=== PATIENT | female | born 1935 | race Caucasian/White ===

== ENCOUNTER 2017-05-06 06:11 | Day surgery (SDC) | payer MEDICARE ==
[~2017-05-06] VITALS: Ht 154.9 cm; Wt 80.5 kg
[~2017-05-06 06:11] MED LIST: 1-ME1LIQ PO; ATOR40TA49 PO; CITRTAB7 PO; CLOP75 PO; ECOT81TA2 PO; FISH100020 PO; FLAX100013; LOSA50TA PO; MAGN400T19 PO; METO25 PO; PREV30CA36 PO; VITA100020; VITA400C59 CHEW
[2017-05-06] MEDS ORDERED: IOHEXOL 350 MG/ML 100 ML BTL (for Cath Lab) OTHER ONE (06:12)
[2017-05-06 06:53] VITALS: BP 156/74; PULSE 53; RESP 18; TEMP 97.8; O2SAT 97
[2017-05-06] MEDS ORDERED: SODIUM CHLOR 0.9% 1000 ML INJ 1,000 ML IV SCH (07:00)
[2017-05-06] MEDS ORDERED: SODIUM CHLORIDE 0.9% FLUSH 10 ML FLUSH IV FLUSH PRN ×2 (07:00)
[2017-05-06] MEDS ORDERED: HYDROCORTISONE SOD SUCCINATE 100 MG VIAL IV PUSH SCH (07:00)
[2017-05-06] MEDS ORDERED: LANS30CA PO (07:14)
[2017-05-06] MEDS ORDERED: VITATAB43 PO (07:14)
[2017-05-06] MEDS ORDERED: VITATAB56 PO (07:14)
[2017-05-06] MEDS ORDERED: ATOR40TA16 PO (07:14)
[2017-05-06] MEDS ORDERED: CITRTAB8 PO (07:14)
[2017-05-06] MEDS ORDERED: METHLMAZOLE PO (07:14)
[2017-05-06] MEDS ORDERED: LOSA50TA PO (07:14)
[2017-05-06] MEDS ORDERED: METO25TA3 PO (07:14)
[2017-05-06] MEDS ORDERED: AMLO10TA2 PO (07:14)
[2017-05-06] MEDS ORDERED: FLAX10002 PO (07:14)
[2017-05-06] MEDS ORDERED: ECASA81 PO (07:14)
[2017-05-06] MEDS ORDERED: CLOP75TA PO (07:14)
[2017-05-06] MEDS ORDERED: PRED20 PO (07:14)
[2017-05-06] MEDS ORDERED: MAGN500T5 PO (07:14)
[2017-05-06] MEDS ORDERED: OMEGCAP PO (07:14)
[2017-05-06] MEDS ORDERED: HEPARIN-NS/PF INJ 1,000 ML ONE (08:49)
[2017-05-06] MEDS ORDERED: MIDAZOLAM HCL 5 MG/5 ML VIAL ONE (08:50)
[2017-05-06] MEDS ORDERED: HEPARIN SODIUM - IV 10,000 UNITS/10 ML VIAL ONE (08:50)
[2017-05-06] MEDS ORDERED: NITROGLYCERIN INJ 5 ML ONE (08:50)
[2017-05-06] MEDS ORDERED: METOCLOPRAMIDE HCL 10 MG/2 ML VIAL IV PUSH PRN (10:30)
[2017-05-06] MEDS ORDERED: ONDANSETRON HCL 4 MG/2 ML VIAL IV PUSH PRN (10:30)
[2017-05-06] MEDS ORDERED: ACETAMINOPHEN 325 MG TAB PO PRN (10:30)
[2017-05-06] MEDS ORDERED: LORazepam 2 MG/ML VIAL IV PUSH PRN (10:30)
[2017-05-06] MEDS ORDERED: ATROPINE SULFATE 1 MG/ML VIAL IV PUSH PRN (10:30)
[2017-05-06] MEDS ORDERED: BACITRACIN OINT 0.9 GM PKT TOP ONE (10:30)
[2017-05-06] MEDS ORDERED: LIDOCAINE HCL 1% 50 ML VIAL INFIL PRN (10:30)
[2017-05-06] MEDS ORDERED: MISC INFORMATION XX ONE (10:30)
[2017-05-06] MEDS ORDERED: SODIUM CHLOR 0.9% 250 ML INJ 250 ML IV PRN (10:30)
--- NOTE | 2017-05-06 11:05 | MA ---
cc: VITALIY ROBERSON DATE: 05/06/2017 PROCEDURE PERFORMED 1. Fluoroscopy with interpretation. 2. Descending aortography. 3. Bilateral lower extremity peripheral angiography with first, second, third order visualization and interpretation. 4. Orbital rotational atherectomy with balloon angioplasty and endovascular stenting with a self-expanding stent of the right external iliac artery. METHOD The risks, benefits and alternatives were discussed with the patient. The patient understood and consented to the procedure. The patient was brought into the catheterization lab and was placed on the catheterization table. Bilateral common femoral arteries were prepped. The left common femoral was accessed and a 5 Scottish, 11 cm sheath was placed without difficulty. DESCENDING AORTOGRAPHY Descending aortography was performed in anterior-posterior view using a 24 cc contrast injection with good opacification. Descending aortography revealed mild infrarenal descending aortic atherosclerosis. PERIPHERAL ANGIOGRAPHY 1. The left common iliac artery has heavy calcium present at the ostium and is covered by a stent which extends into the aorta. There is eccentric 30% stenosis but no translesional gradient. The remainder of the iliac stent is widely patent. The left external and internal iliac arteries have minor luminal irregularities. The left common femoral artery has 60% calcific stenosis. There is a stent present in the proximal left superficial femoral which is occluded. The distal superficial femoral is collateralized via profunda. The left popliteal, anterior tibial, posterior tibial and peroneal arteries have minor luminal irregularities. 2. The right common iliac artery has a stent present which extends into the aorta, appears to be widely patent. There is eccentric calcium at the distal stent and although it is eccentric it is patent without stenosis. The right external iliac artery has a 90% heavily calcified focal stenosis. The internal and external iliac arteries have mild to moderate diffuse disease. The right common femoral artery has 50% calcific stenosis. The right superficial femoral, popliteal, anterior tibial, posterior tibial and peroneal vessels are patent but have mild to moderate diffuse disease. PERIPHERAL INTERVENTION Access was obtained with a 6 Scottish sheath from a retrograde right common femoral approach towards the aorta. A Glidewire was navigated to the descending aorta. A Trailblazer catheter was advanced to the descending aorta and exchanged for a 0.014 inch, 335 cm Viper wire. A 2.0 mm CSI atherectomy catheter was then prepped. Orbital rotational atherectomy was performed on six sequential passes through the right external iliac artery at 60,000, 90,000 and 120,000 revolutions per minute to each. A 6.0 x 40 mm Medtronic balloon was then deployed on two sequential inflations to the right external iliac artery. Repeat angiography still showed severe residual stenosis. An 8.0 x 40 mm Medtronic self-expanding stent was then deployed. Repeat angiography showed mild residual eccentric stenosis but ROSLYN-III flow. There was no damping waveform at the level of the right common femoral artery. CONCLUSIONS 1. Patent bilateral common iliac artery stents. 2. Severe right external iliac artery stenosis. 3. Successful orbital rotational atherectomy with balloon angioplasty and endovascular stenting with self-expanding stent of the right external iliac artery. 4. Occluded left superficial femoral artery. PLAN Will monitor the patient closely for any post-procedural complications. Hopefully this will translate well with symptomatic improvement. I will talk to her potentially about revascularization of the left lower extremity. Options would include left common femoral endarterectomy followed by a fem-pop bypass. Alternatively, we could attempt a retropopliteal approach and possible endovascular atherectomy of the common femoral artery. Will have a discussion with her and make a decision. MD MARION Avery/LILY /10:33 AM /10:41 AM
--- NOTE | 2017-05-06 18:00 | EKG ---
Date Performed: 05/06/2017 Time Performed: 07:06:26 PTAGE: 81 years EKG: Sinus bradycardia with PAC(s). Poor R wave progression - probable normal variant Septal T w ave changes are nonspecific Since previous tracing, no significant change noted Borderline ECG PREVIOUS TRACING : 02/28/2015 07.13 DOCTOR: Shane Jernigan Interpretating Date/Time 05/06/2017 17:59:22
[2017-05-07] MEDS ORDERED: METH5TAB4 PO (11:10)
== END 2017-05-06 18:55 | disposition home or self-care (01) ==
LOC: HDOC 06:11 → HDIC 06:12 → HDOC 18:55
PROVIDERS: ATTEND Internal Medicine
DX: I73.9 Peripheral vascular disease, unspecified (principal); I70.0 Atherosclerosis of aorta; I13.0 Hypertensive heart and chronic kidney disease with heart failure and stage 1 through stage 4 chronic kidney disease, or unspecified chronic kidney disease; N18.3 Chronic kidney disease, stage 3 (moderate); I50.30 Unspecified diastolic (congestive) heart failure; E11.22 Type 2 diabetes mellitus with diabetic chronic kidney disease; E53.8 Deficiency of other specified B group vitamins; G63 Polyneuropathy in diseases classified elsewhere; E05.20 Thyrotoxicosis with toxic multinodular goiter without thyrotoxic crisis or storm; I27.20 Pulmonary hypertension, unspecified; I83.90 Asymptomatic varicose veins of unspecified lower extremity; M85.80 Other specified disorders of bone density and structure, unspecified site; E05.90 Thyrotoxicosis, unspecified without thyrotoxic crisis or storm; R01.1 Cardiac murmur, unspecified; J21.9 Acute bronchiolitis, unspecified; E11.21 Type 2 diabetes mellitus with diabetic nephropathy; E11.51 Type 2 diabetes mellitus with diabetic peripheral angiopathy without gangrene; E78.5 Hyperlipidemia, unspecified; G89.29 Other chronic pain; K21.9 Gastro-esophageal reflux disease without esophagitis
CPT/HCPCS: 37227; 75625; 75716; 85002; 86850; 86900; 86901; 93005; 99152; 99153; C1714; C1725; C1751; C1769; C1876; C1893; J1644; J1720; J2250; J3010; 85347; Q9967

== ENCOUNTER 2017-09-16 05:57 | Day surgery (SDC) | payer MEDICARE ==
[~2017-09-16] VITALS: Ht 154.9 cm; Wt 80.0 kg
[~2017-09-16 05:57] MED LIST changes: -1-ME1LIQ PO; +AMLO10TA2 PO; +ATOR40TA16 PO; -ATOR40TA49 PO; -CITRTAB7 PO; +CITRTAB8 PO; -CLOP75 PO; +CLOP75TA PO; +ECASA81 PO; -ECOT81TA2 PO; -FISH100020 PO; -FLAX100013; +FLAX10002 PO; +LANS30CA PO; -MAGN400T19 PO; +MAGN500T5 PO; +METH5TAB4 PO; -METO25 PO; +METO25TA3 PO; +OMEGCAP PO; +PRED20 PO; -PREV30CA36 PO; -VITA100020; -VITA400C59 CHEW; +VITATAB43 PO; +VITATAB56 PO
[2017-09-16] MEDS ORDERED: IOHEXOL 350 MG/ML 100 ML BTL (for Cath Lab) OTHER ONE (05:58)
[2017-09-16 06:37] VITALS: BP 140/76; PULSE 52; RESP 18; TEMP 98; O2SAT 95
[2017-09-16] MEDS ORDERED: HEPARIN-NS/PF FLUSH BAG 2,000 ML IV FLUSH ONE (08:20)
[2017-09-16] MEDS ORDERED: LIDOCAINE HCL 1% PF 30 ML VIAL ONE (08:21)
[2017-09-16] MEDS ORDERED: HEPARIN SODIUM - IV 10,000 UNITS/10 ML VIAL ONE (08:21)
[2017-09-16] MEDS ORDERED: MIDAZOLAM HCL 2 MG/2 ML VIAL ONE ×2 (08:21→09:11)
[2017-09-16] MEDS ORDERED: NITROGLYCERIN INJ 5 ML ONE (08:21)
[2017-09-16] MEDS ORDERED: LIDOCAINE HCL 1% 50 ML VIAL INFIL PRN (10:30)
[2017-09-16] MEDS ORDERED: MISC INFORMATION XX ONE (10:30)
[2017-09-16] MEDS ORDERED: ATROPINE SULFATE 1 MG/ML VIAL IV PUSH PRN (10:30)
[2017-09-16] MEDS ORDERED: LORazepam 2 MG/ML VIAL IV PUSH PRN (10:30)
[2017-09-16] MEDS ORDERED: BACITRACIN OINT 0.9 GM PKT TOP ONE (10:30)
[2017-09-16] MEDS ORDERED: METOCLOPRAMIDE HCL 10 MG/2 ML VIAL IV PUSH PRN (10:30)
[2017-09-16] MEDS ORDERED: SODIUM CHLOR 0.9% 250 ML INJ 250 ML IV PRN (10:30)
[2017-09-16] MEDS ORDERED: ONDANSETRON HCL 4 MG/2 ML VIAL IV PUSH PRN (10:30)
--- NOTE | 2017-09-16 10:36 | CATHPROC ---
[place] HIS Report Study Information Study Number Admission Scheduled Start Study Start [id number] Sep 16 2017 5:57AM 09/16/2017 Sep 16 2017 8:11AM [place] Service Cath Endovascular Study Admit Source Facility Department Other [facility] - Complaint Evaluation Supervisor Physician and Clinical Staff Initial Emmanuel Calderon Coffee Sommelier Zayra Pena,RN Coffee SommelierDean Hung,BROOK Recorder Emile Guillen,RT(R) Scrub Oziel Real,RT(R) Procedures Performed Procedure Location (Site) Vessel Name Angiogram (manual) Fem L. Com (L7) Femoral Art Angiogram (manual) Popliteal L (L10) Popliteal Angiogram (manual) SFA (left) Femoral Art Angiogram (manual) Tib, Post (Left) Popliteal MAINTENANCE ASSISTANT Fem L. Com (L7) Femoral Art MAINTENANCE ASSISTANT SFA (left) Femoral Art Wire insertion Popliteal L (L10) Popliteal Equipment Time Two Way Radio Technician Description Size Mfg Part Number Used/Scraped DBP- CARDIOVASCULAR CATHETER, STEALTH SOLID 09:56 [id number] Used SYSTEMS INC. 2.0MM *[id number] CARDIOVASCULAR VPR-[id number] 09:53 WIRE, FIRM (VIPER) 335 Used SYSTEMS INC. *[id number] INTRODUCER SET, 08:42 COOK INC. FR 5 [id number] *[id number] Used MICROPUNCTURE STIFF BALLOON, ADVANCE 35 LP .035 5 [id number] 09:43 COOK/BARTOLO 5 X 20 Used X 20 *[id number] *[id number] BALLOON, ADMIRAL EXTREME 5 [id number] 09:53 [employer] 130CM Used X 60 130CM *[id number] BALLOON, ADMIRAL IN.PACT 6 X [id number] 10:15 [employer] 130CM Used 150 130CM *[id number] BALLOON, ADMIRAL IN.PACT 7 X [id number] 10:04 [employer] 130CM Used 40 130CM *[id number] CATHETER, FR5 TRAILBLAZER [id number] 09:31 [employer] 135CM Used .035 *[id number] 08:34 MALLINCKRODT SYRINGE, ANGIOMAT 150ML 150ML [id number] Used [id number] 08:34 MEDLINE INDUSTRIES PACK, CCL CUSTOM * Used *[id number] 08:34 MEDLINE PACER PEN, SKIN DUAL W/ RULER * Used *[id number] 08:34 [employer] MEDICAL WIRE, EXCHANGE 260CM 3MMJ 260CM Used *[id number] 08:34 NAMIC MANIFOLD, 4 PORT * Used *[id number] 08:34 NYCOMED OMNIPAQUE, 300 MG, 150ML 150ML [id number] Used [id number] 08:34 MURPHY MEDICAL BLANKET,WARM AIR CCL * Used *[id number] 08:34 TERUMO MEDICAL SHEATH, FR5 TERUMO (10CM) FR 5 Used *[id number] 08:46 TERUMO MEDICAL SHEATH, FR6 TERUMO (10CM) FR 6 Used *[id number] WIRE, ANGLE GLIDE STIFF .035 [id number] 08:34 TERUMO MEDICAL/BARTOLO 260CM Used 260CM *[id number] Equipment Model, Serial, Lot Number and Expiration Data Description Model Number Serial Number Lot Number Expiration Date BALLOON, ADMIRAL IN.PACT 6 X [id number] 05-06-2020 150 130CM BALLOON, ADMIRAL IN.PACT 7 X [id number] 03-15-2018 40 130CM CATHETER, STEALTH SOLID 2.0MM [id number] 05-25-2019 INTRODUCER SET, [id number] 06-25-2020 MICROPUNCTURE STIFF WIRE, FIRM (VIPER) 335 [id number] 04-24-2019 History: Current Medications Medication Dosage/Unit Route Frequency Last Date/Time Taken LOPRESSOR ASA PLAVIX Statins (any) History: Allergies Allergy Reaction Sulfa (Sulfonamide Antibiotics) lisinopril iohexol potassium iodide sodium iodide codeine diatrizoate meglumine ibuprofen iodine povidone-iodine gadoteridol gadodiamide iodixanol gadobenic acid History: Risk Factors Family History of Hypertension Dyslipidemia Previous MS Previous Heart Failure Premature CAD Yes Yes No No No Prior Valve Prior PCI Prior CABG Surgery No No No Cerebrovascular Peripheral Artery Chronic Lung On Dialysis Diabetes Diabetes Therapy Disease Disease Disease No No Yes No Yes Diet History: Stress Tests Stress or Imaging Studies Performed No History: Other Disease Selection Items Gerd HTN Pericardial effusion Renal Failure/Insufficiency History: Other Current Smoker No Labs Hgb (g/dl) Hct (%) RBC (MIL/MM3) WBC (l/cumm) Platelets (thousands) 11.60-17.00 35.00-51.00 4.00-5.90 4.00-11.00 150.00-450.00 12.2 38.4 4.4 7.2 220 Glucose (mg/dl) BUN (mg/dl) Creatinine (mg/dl) BUN:Creatinine (1:x) 74.00-106.00 7.00-18.00 0.50-1.30 10.00-20.00 148 18 1.0 18 Na (meq/l) K (meq/l) Cl (meq/l) CO2 (mmol/L) Ca (mg/dl) 136.00-145.00 3.50-5.10 98.00-107.00 21.00-32.00 8.50-10.10 141 4.7 101 22 9 PT (sec) INR (PTT:PT) 9.80-11.60 0.90-1.10 10 0.9 CPK-MB (ng/ML) 0.50-3.60 Not Drawn Medication Medication Total Dose (Bolus/Oral) Medication Total Dosage/Unit 1% XYLOCAINE 20 mL FENTANYL 175 mcg HEPARIN 5000 units VERSED 4 mg Medications (Bolus/Oral) Medication Time Given Dosage/Unit Administered By Reason VERSED 09/16/2017 8:42:58 AM 1 mg Marky, Zayra 1 mg VERSED given in lab by Zayra Pena RN in Left Wrist via Peripheral IV. FENTANYL 09/16/2017 8:43:11 AM 50 mcg Paola Penafer 50 mcg FENTANYL given in lab by Zayra Pena RN in Left Wrist via Peripheral IV. 1% XYLOCAINE 09/16/2017 8:45:31 AM 20 mL Paola Penafer 20 mL 1% XYLOCAINE given in lab by Zayra Pena RN via Subcutaneous. Left posterior leg. VERSED 09/16/2017 8:53:30 AM 1 mg Adamy, Zayra 1 mg VERSED given in lab by Zayra Pena RN in Left Wrist via Peripheral IV. FENTANYL 09/16/2017 8:53:34 AM 50 mcg Marky, Zayra 50 mcg FENTANYL given in lab by Zayra Pena RN in Left Wrist via Peripheral IV. VERSED 09/16/2017 9:18:16 AM 1 mg Adamy, Zayra 1 mg VERSED given in lab by Zayra Pena RN in Left Wrist via Peripheral IV. FENTANYL 09/16/2017 9:18:23 AM 25 mcg Zayra Pena 25 mcg FENTANYL given in lab by Zayra Pena RN in Left Wrist via Peripheral IV. HEPARIN 09/16/2017 9:31:27 AM 5000 units Zayra Pena 5000 units HEPARIN given in lab by Zayra Pena RN in Left Wrist via Peripheral IV. VERSED 09/16/2017 10:20:28 AM 1 mg Zayra Pena 1 mg VERSED given in lab by Zayra Pena RN in Left Wrist via Peripheral IV. FENTANYL 09/16/2017 10:20:32 AM 50 mcg Zayra Pena 50 mcg FENTANYL given in lab by Zayra Pena RN in Left Wrist via Peripheral IV. Medication (Drip) Medication Time Given Dosage/Unit Concentration/Unit Diluent (ml) Solutio n IV Solutions 09/16/2017 8:11:07 AM 0 mL (IV) 500 NaCl .9 IV Solutions given in lab by Dean Almendarez RN in Left Wrist via Peripheral IV. Pump/Drip Flow = 20 ml/hr using NaCl .9. Initial Case Assessment Cardiovascular HR Rhythm NIBP Chest Pain 59 Sinus 132/66 0 Edema Present Skin color Skin None Normal Warm Dry Neurological State Oriented to time-place- Alert Moves all extremities person Respiration - General Respiration Rate SpO2 (%) O2 (lpm) (B/min) 15 96 0 Final Case Assessment Cardiovascular HR Rhythm NIBP Chest Pain 56 Sinus 113/85 0 Edema Present Skin color Skin None Normal Warm Dry Neurological State Oriented to time-place- Alert Moves all extremities person Respiration - General Respiration Rate SpO2 (%) O2 (lpm) (B/min) 10 99 2 Chronological Log Time Study Chronological Log 8:08:44 Patient arrived via Bed. 8:10:51 Patient Name, D.O.B, / Armband Verified By R.N. 8:10:52 Consent signed by the physician and the patient and verified by the Complaint Evaluation Supervisor staff. 8:10:52 Pre-op and post- op instructions given; patient acknowledges understanding of instructions. 8:10:53 Verbal Stimulation=2 Physical Stimulation=2 Airway=2 Respiration=2 TOTAL=8. (0=absent, 1=li mited, 2=present) 8:10:54 Presedation assessment performed by Complaint Evaluation Supervisor RN. 8:10:57 Patient has been NPO for More than 6Hrs. 8:10:58 Skin Breakdown- none per patient. 8:10:59 Patient Warmer Placed on the Table. 8:11:05 Jaya Prominences Protected. Patient placed prone on table. 8:11:06 A # 20 IV was noted in the Wrist (left). Grade = 0 8:11:07 IV Solutions given in lab by Dean Almendarez, RN in Left Wrist via Peripheral IV. Pump/Drip Flow = 20 ml/hr using NaCl .9. 8:11:08 History and physical on the chart or being dictated. Vitals capture started with the following parameters, Patient=Adult, Interval=5 min, Initial Pr zdspon=305 mmHg, 8:22:34 Deflation Rate=5 mmHg, Cuff placed on Right Ankle Assessment: Initial Case, HR=59 BPM, Rhythm=Sinus, NCTS=361/66 mmhg, Chest Pain=0, Edema=None, Color=Normal, Skin = Warm, Dry 8:22:36 Neurological: State=Alert, Ox3, HUGHES Respiration: Resp=15 B/min, SpO2=96 %, O2=0 lpm 8:23:14 HR=60 bpm, AEFY=062/66 mmhg, SpO2=96.0 %, Resp=19 B/min, Pain=0, Mikie=10, Frederick=2 8:26:26 Left posterior leg prepped with 2% chlorhexidine, and draped after a 3 min. waiting time. 8:28:46 VV=847 bpm, ORIP=739/66 mmhg, SpO2=97.0 %, Resp=7 B/min, Pain=0, Mikie=10, Frederick=2 8:33:18 RUDC=119/67 mmhg, SpO2=96.0 %, Pain=0, Mikie=10, Frederick=2 8:33:36 MD paged 8:35:04 MD arrived. 8:35:20 Reference ECG taken 8:35:43 Pressure channel 1 zeroed. 8:38:13 HR=56 bpm, TONR=096/74 mmhg, SpO2=96.0 %, Resp=11 B/min, Pain=0, Mikie=10, Frederick=2 8:42:58 1 mg VERSED given in lab by Zayra Pena RN in Left Wrist via Peripheral IV. 8:43:11 50 mcg FENTANYL given in lab by Zayra Pena RN in Left Wrist via Peripheral IV. 8:43:49 HR=61 bpm, FNQZ=681/67 mmhg, SpO2=96.0 %, Resp=18 B/min, Pain=0, Mikie=10, Frederick=2 Time Out. Correct patient, correct procedure, correct physician, power injector loaded, or not l oaded with contrast with 8:44:39 surgical team present. Time Out Concurred by MD and individual staff in procedure. 8:44:43 Case Start 8:45:31 20 mL 1% XYLOCAINE given in lab by Zayra Pena RN via Subcutaneous. Left posterior leg. 8:48:19 HR=51 bpm, PXIL=343/60 mmhg, SpO2=96.0 %, Resp=11 B/min, Pain=0, Mikie=10, Frederick=2 8:53:30 1 mg VERSED given in lab by Zayra Pena RN in Left Wrist via Peripheral IV. 8:53:34 50 mcg FENTANYL given in lab by Zayra Pena RN in Left Wrist via Peripheral IV. 8:53:55 HR=53 bpm, KIVU=655/50 mmhg, SpO2=98.0 %, Resp=10 B/min, Pain=0, Mikie=10, Frederick=2 8:58:17 HR=54 bpm, NKXK=192/59 mmhg, SpO2=97.0 %, Resp=8 B/min, Pain=0, Mikie=10, Frederick=2 9:03:59 HR=60 bpm, HDXX=114/60 mmhg, SpO2=98.0 %, Resp=11 B/min, Pain=0, Mikie=10, Frederick=2 9:08:52 HR=65 bpm, HTPS=925/66 mmhg, SpO2=97.0 %, Resp=12 B/min, Pain=0, Mikie=10, Frederick=2 9:13:16 HR=58 bpm, LOFT=204/70 mmhg, SpO2=97.0 %, Resp=9 B/min, Pain=0, Mikie=10, Frederick=2 9:18:16 1 mg VERSED given in lab by Zayra Pena RN in Left Wrist via Peripheral IV. 9:18:17 HR=50 bpm, CIAK=292/63 mmhg, SpO2=97.0 %, Resp=12 B/min, Pain=0, Mikie=10, Frederick=2 9:18:23 25 mcg FENTANYL given in lab by Zayra Pena, BROOK in Left Wrist via Peripheral IV. 9:23:18 HR=59 bpm, NUII=039/73 mmhg, SpO2=97.0 %, Resp=14 B/min, Pain=0, Mikie=10, Frederick=2 9:28:07 Access site was Other Artery. Left popliteal. 9:28:56 A SHEATH, FR6 TERUMO (10CM) FR 6 was advanced into the Popliteal L (L10) using the Percutane ous technique. 9:29:03 HR=59 bpm, QPGB=768/60 mmhg, SpO2=98.0 %, Resp=18 B/min, Pain=0, Mikie=10, Frederick=2 9:31:27 5000 units HEPARIN given in lab by Zayra Pena RN in Left Wrist via Peripheral IV. 9:31:44 Popliteal L (L10) angiogram, manually injected. 9:32:46 A WIRE, ANGLE GLIDE STIFF .035 260CM 260CM was inserted via Popliteal L (L10). 9:33:22 A catheter was advanced over a wire. OMNIPAQUE, 300 MG, 150ML 150ML was used for injections. 9:33:55 HR=60 bpm, SUIQ=740/71 mmhg, SpO2=97.0 %, Resp=19 B/min, Pain=0, Mikie=10, Frederick=2 A CATHETER, FR5 TRAILBLAZER .035 135CM was advanced over a wire. OMNIPAQUE, 300 MG, 150ML 150ML was 9:37:29 used for injections. 9:38:18 HR=58 bpm, LNKH=839/74 mmhg, SpO2=97.0 %, Resp=13 B/min, Pain=0, Mikie=10, Frederick=2 9:39:47 Wire removed 9:39:52 A WIRE, EXCHANGE 260CM 3MMJ 260CM was inserted via Popliteal L (L10). 9:41:05 Activated Clotting Time Drawn A BALLOON, ADVANCE 35 LP .035 5 X 20 5 X 20 was inserted over WIRE, EXCHANGE 260CM 3MMJ 260CM v ia the SFA 9:43:15 (left). 9:43:23 HR=55 bpm, PMQX=296/53 mmhg, SpO2=97.0 %, Resp=34 B/min, Pain=0, Mikie=10, Frederick=2 9:43:33 In the SFA (left) a BALLOON, ADVANCE 35 LP .035 5 X 20 5 X 20 was inflated to 6 atms for 60 seconds. 9:44:58 ACT (Normal Range 90-180) = 250 9:48:37 Balloon Removed. 9:48:55 HR=55 bpm, MOPP=061/59 mmhg, SpO2=98.0 %, Resp=13 B/min, Pain=0, Miike=10, Frederick=2 A PIGTAIL STR INFINITI CATHETER FR 4 was advanced over a wire. OMNIPAQUE, 300 MG, 150ML 150ML w as used for 9:49:09 injections. 9:50:32 Fem L. Com (L7) angiogram, manually injected. 9:51:03 Catheter was removed w/o difficulty A BALLOON, ADMIRAL EXTREME 5 X 60 130CM 130CM was inserted over WIRE, EXCHANGE 260CM 3MMJ 260CM via 9:53:28 the SFA (left). 9:53:42 In the SFA (left) a BALLOON, ADMIRAL EXTREME 5 X 60 130CM 130CM was inflated to 6 atms for 1 0 seconds. 9:53:56 HR=53 bpm, RYVS=860/67 mmhg, SpO2=97.0 %, Resp=19 B/min, Pain=0, Mikie=10, Frederick=2 9:54:07 The previous wire was exchanged for a WIRE, FIRM (VIPER) 335. 9:54:29 Balloon Removed. 9:57:18 An CATHETER, STEALTH SOLID 2.0MM catheter was inserted into the Fem L. Com (L7). 9:58:06 Athrectomy in progress. 9:58:20 HR=27 bpm, LRHG=884/71 mmhg, SpO2=99.0 %, Resp=10 B/min, Pain=0, Mikie=10, Frederick=2 10:04:06 HR=56 bpm, HKKT=484/68 mmhg, SpO2=97.0 %, Resp=20 B/min, Pain=0, Mikie=10, Frederick=2 10:04:20 Catheter was removed A CATHETER, FR5 TRAILBLAZER .035 135CM was advanced over a wire. OMNIPAQUE, 300 MG, 150ML 150ML was 10:04:31 used for injections. 10:05:04 The previous wire was exchanged for a WIRE, EXCHANGE 260CM 3MMJ 260CM. A BALLOON, ADMIRAL IN.PACT 7 X 40 130CM 130CM was inserted over WIRE, EXCHANGE 260CM 3MMJ 260CM via the 10:06:26 Fem L. Com (L7). 10:06:44 Activated Clotting Time Drawn 10:07:25 In the Fem L. Com (L7) a BALLOON, ADMIRAL IN.PACT 7 X 40 130CM 130CM was inflated to 8 atms for 180 seconds. 10:08:24 HR=52 bpm, RKZY=328/69 mmhg, SpO2=99.0 %, Resp=13 B/min, Pain=0, Mikie=10, Frederick=2 10:10:43 ACT (Normal Range 90-180) = 232 10:11:37 Balloon Removed. A PIGTAIL STR INFINITI CATHETER FR 4 was advanced over a wire. OMNIPAQUE, 300 MG, 150ML 150ML w as used for 10:11:42 injections. 10:13:13 HR=47 bpm, CXUI=513/67 mmhg, WbC9=281.0 %, Resp=11 B/min, Pain=0, Mikie=10, Frederick=2 10:14:05 Fem L. Com (L7) angiogram, manually injected. 10:14:16 SFA (left) angiogram, manually injected. 10:14:40 Catheter was removed A BALLOON, ADMIRAL IN.PACT 6 X 150 130CM 130CM was inserted over WIRE, EXCHANGE 260CM 3MMJ 260C M via 10:16:39 the SFA (left). 10:16:52 In the SFA (left) a BALLOON, ADMIRAL IN.PACT 6 X 150 130CM 130CM was inflated to 8 atms for 180 seconds. 10:19:03 HR=48 bpm, AOGC=615/71 mmhg, DuZ3=341.0 %, Resp=13 B/min, Pain=0, Mikie=10, Frederick=2 10:20:28 1 mg VERSED given in lab by Zayra Pena, RN in Left Wrist via Peripheral IV. 10:20:32 50 mcg FENTANYL given in lab by Zayra Pena RN in Left Wrist via Peripheral IV. 10:21:01 In the SFA (left) a BALLOON, ADMIRAL IN.PACT 6 X 150 130CM 130CM was inflated to 8 atms for 40 seconds. 10:23:09 HR=53 bpm, VPYF=369/90 mmhg, SpO2=98.0 %, Resp=16 B/min, Pain=0, Mikie=10, Frederick=2 10:23:37 Balloon Removed. A PIGTAIL STR INFINITI CATHETER FR 4 was advanced over a wire. OMNIPAQUE, 300 MG, 150ML 150ML w as used for 10:23:44 injections. 10:24:17 Fem L. Com (L7) angiogram, manually injected. 10:24:31 SFA (left) angiogram, manually injected. 10:24:59 Popliteal L (L10) angiogram, manually injected. 10:25:32 A WIRE, EXCHANGE 260CM 3MMJ 260CM was inserted via Popliteal L (L10). 10:25:43 Catheter was removed 10:26:43 Tib, Post (Left) angiogram, manually injected. 10:27:24 Wire removed 10:27:40 Case End 10:28:55 HR=60 bpm, KZCP=758/85 mmhg, SpO2=98.0 %, Resp=18 B/min, Pain=0, Mikie=10, Frederick=2 10:30:33 No case complications noted. 10:30:34 Cine recording checked. 10:30:34 Sterile dressing applied to site 10:30:39 In the Popliteal L (L10) the SHEATH, FR6 TERUMO (10CM) FR [address] by Emmanuel Garcia. Assessment: Final Case, HR=56 BPM, Rhythm=Sinus, QPAF=434/85 mmhg, Chest Pain=0, Edema=None, Color=Normal, Skin = Warm, Dry 10:32:14 Neurological: State=Alert, Ox3, HUGHES Respiration: Resp=10 B/min, SpO2=99 %, O2=2 lpm 10:33:04 Bedside Report will be given. 10:34:00 HR=51 bpm, WCVA=583/65 mmhg, SpO2=98.0 %, Resp=11 B/min, Pain=0, Mikie=10, Frederick=2 10:36:30 Vitals capture stopped. 10:38:33 Patient moved to stretcher End Study - Contrast Media Used In Study Contrast Total Opened (mL) Total Used (mL) Total Wasted (mL) Omnipaque 150 70 80 End Study - Maximum Contrast Load Max Contrast Load (mL) 400.0 End Study - Radiation Exposure Fluoro Time (minutes) 17.9 End Study - Patient Disposition Complications Transferred To Interventional Outcome No Outpatient Bed successful
[2017-09-16] MEDS ORDERED: CILO50TA PO (11:51)
[2017-09-16] MEDS ORDERED: diphenhydrAMINE HCL 50 MG CAP PO SCH (13:00)
[2017-09-16] MEDS ORDERED: SODIUM CHLORIDE 0.9% FLUSH 10 ML FLUSH IV FLUSH PRN (13:00)
[2017-09-16] MEDS ORDERED: SODIUM CHLOR 0.9% 1000 ML INJ 1,000 ML IV SCH (13:00)
--- NOTE | 2017-09-17 11:24 | MA ---
cc: Emmanuel Garcia MD DATE: 09/16/2017 PERIPHERAL ANGIOGRAPHY WITH INTERVENTION. PROCEDURES PERFORMED: 1. Fluoroscopy with interpretation. 2. Left lower extremity peripheral angiography with first, second, third order of visualization interpretation. 3. Orbital rotational atherectomy and balloon angioplasty with drug-coated balloon of the left common femoral artery. 4. Successful percutaneous angioplasty with drug-coated balloon of the left superficial femoral artery. METHOD: Risks, benefits and alternatives discussed with the patient. The patient understood and consented to the procedure. The patient was brought to the catheterization lab and placed on the catheterization table in a prone position. Left popliteal artery was accessed under fluoroscopic and ultrasound guidance. A micropuncture sheath was placed, exchanged over a J-wire for a 6-Yoruba sheath. A 0.035 inch, 260 cm stiff angled Glidewire was navigated behind a Quick-Cross catheter through the chronically occluded left superficial femoral artery stent and into the descending aorta. Digital subtraction angiography confirmed intraluminal placement. The J wire was then advanced up into the thoracic aorta. A 5.0 x 200 mm Cook balloon was then deployed in the superficial femoral artery in one inflation. Repeat angiography showed jewish of ROSLYN 3 flow, but severe residual stenosis. There was a very severe eccentric calcific stenosis in the mid common femoral artery. A ViperWire was then exchanged to the descending aorta and a 2.0 mm CSI atherectomy catheter prepped. Orbital rotational atherectomy was performed on 4 sequential passes, 120,000 revolutions per minute in the left common femoral artery and postdilated with a 7 x 40 mm Medtronic drug-coated balloon for prolonged inflation. Repeat angiography still showed moderate eccentric calcific stenosis, but ROSLYN 3 flow, no dissection. A 6.0 x 150 mm Medtronic drug-coated balloon was then deployed in the left superficial femoral artery stent. Repeat angiography showed ROSLYN 3 flow. At this point, given the reestablishment of ROSLYN 3 flow, we elected not to proceed with any further intervention. Heparin was administered throughout the entire procedure to maintain appropriate anticoagulation. Popliteal sheath sewn into place to be removed with manual hemostasis. CONCLUSIONS: 1. 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 2. Severe eccentric calcific left common femoral artery stenosis. 3. Successful orbital rotational atherectomy and balloon angioplasty with drug-coated balloon of the left superficial femoral artery. 4. Successful percutaneous balloon angioplasty with drug-coated balloon of the left superficial femoral artery. PLAN: The patient will be continued on aggressive medical therapy. Hopefully, this will translate to symptomatic improvement. We did a drug-coated balloon, but no stenting. Got a fairly decent result. Hopefully, this will not occlude in the short-term, but future revascularization should likely be surgical, as she would likely need a common femoral endarterectomy and consideration of peripheral bypass. MD MARSHA Vickers/TL/ , 10:36 AM , 11:15 AM MYRA
== END 2017-09-16 18:14 | disposition home or self-care (01) ==
LOC: HDOC 05:57 → HDIC 05:57 → HDOC 18:14
PROVIDERS: ATTEND Internal Medicine
DX: I70.212 Atherosclerosis of native arteries of extremities with intermittent claudication, left leg (principal); I10 Essential (primary) hypertension; E11.9 Type 2 diabetes mellitus without complications
CPT/HCPCS: 37225; 75710; 85002; 85347; 86850; 86900; 86901; 99152; 99153; C1714; C1725; C1751; C1769; C1893; C2623; J1644; J2250; J3010; Q9967